=== PATIENT | male | born 1945 | race Caucasian/White ===

== ENCOUNTER 2016-08-27 12:55 | Inpatient (IN) | payer MEDICARE ==
[~2016-08-27] VITALS: Ht 182.9 cm; Wt 108.6 kg
[2016-08-27] VITALS (7 sets, daily range): BP systolic 115–143; BP diastolic 56–98; PULSE 61–81; RESP 16–23; TEMP 97.7–98.6; O2SAT 91–96
[~2016-08-27 12:55] MED LIST: ATEN1TAB73 PO; DILA100C PO; ENOX40P SQ; FLUO-1 PO; LASI20TA PO; LOMO PO; LORA-475 PO; LORT7.5T3 PO; METO5TAB PO; NEUR100C PO; NEXI20CA PO; PHEN15TA8 PO; PROM6.2518 PO; SOMA350T PO; TAB-TAB PO; VARE.5
--- NOTE | 2016-08-27 16:53 | RADRPT ---
EXAM DATE/TIME: 08/27/2016 16:33 [place] COMPARISON: No previous studies available for comparison. INDICATIONS : Cough. MEDICAL HISTORY : Chronic obstructive pulmonary disease. Stroke. SURGICAL HISTORY : None. ENCOUNTER: Initial ACUITY: >1 year PAIN SCORE: 0/10 LOCATION: Bilateral chest FINDINGS: Mild left lung base atelectasis and/or infiltrate is seen. Heart and mediastinum are unremarkable for technique. There are atherosclerotic calcifications of the aorta due to chronic atherosclerotic dise ase. CONCLUSION: Mild left lung base atelectasis and/or infiltrate is seen. Joe Barker MD on August 27, 2016 at 16:50 Board Certified Radiologist. This report was verified electronically.
--- NOTE | 2016-08-27 16:57 | PD ---
HPI Chief Complaint: Lump, Cyst, Hernia Time Seen by Provider: 16:14 Travel History International Travel<30 days: No Contact w/Intl Traveler<30days: No Traveled to known affect area: No History of Present Illness HPI Patient is a 70-year-old male presents emergency department for evaluation of a cyst on his upper back. Patient states that her physician drained at the other day and then he followed up with a plastic surgeon who recommended he come to the emergency department for evaluation for possible infection and need for admission. He states that he was told that they "don't think they got it all and he'll need to have it surgically removed". After discussion with the patient it sounds like is referring to an infected sebaceous cyst. He was placed on Keflex and states his been taking it. He is a diabetic COPD on home oxygen. States his been feeling chills but hasn't taken his temperature. Denies any systemic symptoms denies chest patrons breath abdominal pain nausea vomiting. States that his primary care physician he has not seen in 6 months is fussy over 3 months he has not had blood work in some time. States that he has no known history of kidney problems per [facility] Past Medical History Arthritis: Yes Depression: Yes Cardiovascular Problems: Yes Congestive Heart Failure: Yes COPD: Yes Cerebrovascular Accident: Yes Diabetes: Yes Patient Takes Glucophage: No Gastrointestinal Disorders: Yes GERD: Yes Genitourinary: No Hypertension: Yes Musculoskeletal: Yes Reproductive: No Respiratory: No Seizures: Yes Tetanus Vaccination: > 5 Years Influenza Vaccination: Yes Social History Alcohol Use: Yes Tobacco Use: Yes (E-CIGARETTE) Substance Use: No Allergies-Medications (Allergen,Severity, Reaction): Coded Allergies: Depakote (Verified Allergy, Unknown, 08/27/16) Reported Meds & Prescriptions Reported Meds & Active Scripts Active Reported Tramadol (Tramadol HCl) 50 Mg Tab 50 Mg PO BID PRN Trazodone (Trazodone HCl) 150 Mg Tablet 150 Mg PO BID Lexapro (Escitalopram Oxalate) 20 Mg Tab 20 Mg PO DAILY Zyrtec (Cetirizine HCl) 10 Mg Tablet 10 Mg PO DAILY Celebrex (Celecoxib) 200 Mg Cap 200 Mg PO DAILY Glipizide 10 Mg Tab 10 Mg PO BID Take 30 minutes before a meal Phenergan (Promethazine HCl) 25 Mg Tablet 25 Mg PO Q6H PRN Omeprazole 20 Mg Tab 20 Mg PO DAILY Singulair (Montelukast Sodium) 10 Mg Tab 10 Mg PO HS Lorazepam 1 Mg Tab 1 Mg PO BID Gabapentin 400 Mg Cap 400 Cap PO TID Tenormin (Atenolol) 25 Mg Tab 25 Mg PO BID Tamsulosin (Tamsulosin HCl) 0.4 Mg Cap 0.4 Mg PO HS Invokamet (Canagliflozin-Metformin) 50-1,000 Mg Tab 1 Tab PO BID Take with meals. Avoid ethanol. Keflex (Cephalexin) 500 Mg Capsule 500 Mg PO TID 5 Days Review of Systems Except as stated in HPI: all other systems reviewed are Neg Physical Exam Narrative GENERAL: Well-developed well-nourished no apparent distress, quite pleasant. SKIN: There is a small lesion on his upper back just left of midline approximately T2 level, minimal serosanguineous discharge, no surrounding cellulitis, HEAD: Atraumatic. Normocephalic. EYES: Pupils equal and round. No scleral icterus. No injection or drainage. ENT: No nasal bleeding or discharge. Mucous membranes pink and moist. NECK: Trachea midline. No JVD. CARDIOVASCULAR: Regular rate and rhythm. No murmur appreciated. RESPIRATORY: No accessory muscle use. Clear to auscultation. Breath sounds equal bilaterally. GASTROINTESTINAL: Abdomen soft, non-tender, nondistended. Hepatic and splenic margins not palpable. MUSCULOSKELETAL: No obvious deformities. No clubbing. No cyanosis. No edema. NEUROLOGICAL: Awake and alert. No obvious cranial nerve deficits. Motor grossly within normal limits. Normal speech. PSYCHIATRIC: Appropriate mood and affect; insight and judgment normal. Data Data Last Documented VS Vital Signs Date Time Temp Pulse Resp B/P Pulse Ox O2 Delivery O2 Flow Rate FiO2 08/27/16 19:18 64 22 115/56 95 Nasal Cannula 2 08/27/16 16:16 98.6 Orders Electrocardiogram (08/27/16 16:28) Complete Blood Count With Diff (08/27/16 16:28) Comprehensive Metabolic Panel (08/27/16 16:28) Lactic Acid Sepsis Protocol (08/27/16 16:28) Magnesium (Mg) (08/27/16 16:28) Phosphorus (Po4) (08/27/16 16:28) Lipase (08/27/16 16:28) Urinalysis - C+S If Indicated (08/27/16 16:28) Chest, Single Ap (08/27/16 16:28) Ecg Monitoring (08/27/16 16:28) Iv Access Insert/Monitor (08/27/16 16:28) Oximetry (08/27/16 16:28) Oxygen Administration (08/27/16 16:28) Urine Culture (08/27/16 18:08) Admit Order (Ed Use Only) (08/27/16 ) Labs Laboratory Tests Test 08/27/16 08/27/16 16:30 18:08 White Blood Count 10.8 TH/MM3 Red Blood Count 4.04 MIL/MM3 Hemoglobin 12.6 GM/DL Hematocrit 37.4 % Mean Corpuscular Volume 92.6 FL Mean Corpuscular Hemoglobin 31.1 PG Mean Corpuscular Hemoglobin 33.6 % Concent Red Cell Distribution Width 14.3 % Platelet Count 316 TH/MM3 Mean Platelet Volume 7.5 FL Neutrophils (%) (Auto) 71.1 % Lymphocytes (%) (Auto) 18.2 % Monocytes (%) (Auto) 6.7 % Eosinophils (%) (Auto) 3.4 % Basophils (%) (Auto) 0.6 % Neutrophils # (Auto) 7.6 TH/MM3 Lymphocytes # (Auto) 2.0 TH/MM3 Monocytes # (Auto) 0.7 TH/MM3 Eosinophils # (Auto) 0.4 TH/MM3 Basophils # (Auto) 0.1 TH/MM3 CBC Comment DIFF FINAL Differential Comment Sodium Level 133 MEQ/L Potassium Level 5.5 MEQ/L Chloride Level 99 MEQ/L Carbon Dioxide Level 25.8 MEQ/L Anion Gap 8 MEQ/L Blood Urea Nitrogen 32 MG/DL Creatinine 2.32 MG/DL Estimat Glomerular Filtration 28 ML/MIN Rate Random Glucose 170 MG/DL Lactic Acid Level 1.5 mmol/L Calcium Level 9.1 MG/DL Phosphorus Level 4.6 MG/DL Magnesium Level 2.5 MG/DL Total Bilirubin 0.2 MG/DL Aspartate Amino Transf 19 U/L (AST/SGOT) Alanine Aminotransferase 42 U/L (ALT/SGPT) Alkaline Phosphatase 93 U/L Total Protein 8.3 GM/DL Albumin 3.5 GM/DL Lipase 147 U/L Urine Color YELLOW Urine Turbidity CLEAR Urine pH 5.5 Urine Specific [place] 1.023 Urine Protein TRACE mg/dL Urine Glucose (UA) 1000 mg/dL Urine Ketones NEG mg/dL Urine Occult Blood NEG Urine Nitrite NEG Urine Bilirubin NEG Urine Urobilinogen LESS THAN 2.0 MG/DL Urine Leukocyte Esterase NEG Urine RBC 1 /hpf Urine WBC 1 /hpf Urine Squamous Epithelial <1 /hpf Cells Urine Bacteria RARE /hpf Urine Hyaline Casts 38 /lpf Microscopic Urinalysis Comment CATH-CULTURE IND MDM Medical Decision Making Medical Screen Exam Complete: Yes Emergency Medical Condition: Yes Interpretation(s) EKG shows normal sinus rhythm normal axis normal R-wave progression. No concerning ST segment changes. Intervals within normal limits. This normal EKG. Differential Diagnosis Infected sebaceous cyst, sepsis, dehydration, acute kidney injury, electro- light abnormality. Narrative Course Patient was roomed in the emergency department, he appears well in all distress , does not appear toxic and certainly the wound does not appear infected at this time. His history is consistent with an infected sebaceous cyst. I think that he could pursue outpatient follow-up with general surgery if he was not septic, basic labs were ordered and are reassuring except for the fact that the patient has an acute kidney injury, his last creatinine here was any years ago and was within normal limits today is 2.3. He does have a minimal elevation of potassium at 5.5 but has no EKG abnormalities. The patient was discussed with Dr. Orlando who agrees for admission. Patient is agreeable this time. Diagnosis Primary Impression: Acute kidney injury Additional Impression: Hyperkalemia Admitting Information Admitting Physician Requests: Admit Condition: Stable Waqas Boyd MD Aug 27, 2016 16:57
[2016-08-27] MEDS ORDERED: GABA400C5 PO (16:58)
[2016-08-27] MEDS ORDERED: TRAM50TA PO (16:58)
[2016-08-27] MEDS ORDERED: ATEN1TAB73 PO (16:58)
[2016-08-27] MEDS ORDERED: OMEP20TA PO (16:58)
[2016-08-27] MEDS ORDERED: CETI-1 PO (16:58)
[2016-08-27] MEDS ORDERED: CANA1TAB2 PO (16:58)
[2016-08-27] MEDS ORDERED: LORA1TAB12 PO (16:58)
[2016-08-27] MEDS ORDERED: LEXA20TA PO (16:58)
[2016-08-27] MEDS ORDERED: TRAZ1TAB45 PO (16:58)
[2016-08-27] MEDS ORDERED: TAMS0.4C4 PO (16:58)
[2016-08-27] MEDS ORDERED: MONT10TA2 PO (16:58)
[2016-08-27] MEDS ORDERED: PROM25TA10 PO (16:58)
[2016-08-27] MEDS ORDERED: GLIP10TA6 PO (16:58)
[2016-08-27] MEDS ORDERED: CELE200C PO (16:58)
[2016-08-27] MEDS ORDERED: CEPH-460 PO (16:58)
[2016-08-27 17:07] LABS: AUTOMATED NEUTROPHIL # 7.6 TH/MM3 (1.8-7.7); BASOPHIL # 0.1 TH/MM3 (0-0.2); BASOPHIL % 0.6 % (0.0-2.0); EOSINOPHIL # 0.4 TH/MM3 (0-0.4); EOSINOPHIL % 3.4 % (0.0-4.0); HEMATOCRIT 37.4 % (39.0-51.0); HEMO FLAGS DIFF FINAL; LYMPH % 18.2 % (9.0-44.0); MEAN CELL VOLUME 92.6 FL (80.0-100.0); MEAN CORPUSCULAR HEMOGLOBIN 31.1 PG (27.0-34.0); MEAN CORPUSCULAR HGB CONC 33.6 % (32.0-36.0); MONO % 6.7 % (0.0-8.0); NEUT % 71.1 % (16.0-70.0); PLATELET COUNT 316 TH/MM3 (150-450); RED BLOOD COUNT 4.04 MIL/MM3 (4.50-5.90); RED CELL DISTRIBUTION WIDTH 14.3 % (11.6-17.2); WHITE BLOOD COUNT 10.8 TH/MM3 (4.0-11.0)
[2016-08-27 17:33] LABS: ALT (GPT) 42 U/L (12-78); ANION GAP 8 MEQ/L (5-15); AST (GOT) 19 U/L (15-37); BICARBONATE 25.8 MEQ/L (21.0-32.0); BLOOD UREA NITROGEN 32 MG/DL (7-18); CHLORIDE 99 MEQ/L (98-107); GLOMERULAR FILTRATION RATE 28 ML/MIN (>89); MAGNESIUM 2.5 MG/DL (1.5-2.5); POTASSIUM 5.5 MEQ/L (3.5-5.1); SODIUM (NA) 133 MEQ/L (136-145)
[2016-08-27 17:34] LABS: ALKALINE PHOSPHATASE 93 U/L (45-117); TOTAL BILIRUBIN ADULT 0.2 MG/DL (0.2-1.0)
[2016-08-27 18:39] LABS: BACTERIA, URINE RARE /hpf; BLOOD, URINE NEG (NEG); COMMENT (UR) CATH-CULTURE IND; CULTURE IF INDICATED CATH CULTURE IND; GLUCOSE,URINE 1000 mg/dL (NEG); HYALINE CAST, URINE 38 /lpf (RARE); KETONE, URINE NEG (NEG); NITRITE,URINE NEG (NEG); PH, URINE 5.5 (5.0-8.5); SQUAMOUS EPITHELIAL CELL URINE <1 /hpf (0-5); URINE COLOR YELLOW (YELLW/STRAW)
[2016-08-27] MEDS ORDERED: SODIUM CHLORIDE 0.9% FLUSH 10 ML FLUSH IV FLUSH PRN (19:45)
[2016-08-27] MEDS ORDERED: NALOXONE HCL 0.4 MG/ML AMP IV PRN (19:45)
[2016-08-27] MEDS ORDERED: GLUCAGON 1 MG/ML VIAL OTHER PRN (20:00)
[2016-08-27] MEDS ORDERED: RESP: ALBUTEROL 2.5 MG/IPRATROPIUM 0.5 MG NEB (PRN) NEB (20:00)
[2016-08-27] MEDS ORDERED: SODIUM POLYSTYRENE SULFONATE SUSP 15 GM/60 ML CUP PO ONE (20:00)
[2016-08-27] MEDS ORDERED: DEXTROSE 50% IN WATER 50 ML VIAL(D50) IV PRN (20:00)
[2016-08-27] MEDS: RESP: ALBUTEROL 2.5 MG/IPRATROPIUM 0.5 MG NEB (SCH) NEB (21:47)
--- NOTE | 2016-08-27 22:33 | EKG ---
Date Performed: 08/27/2016 Time Performed: 16:41:35 PTAGE: 70 years EKG: Sinus rhythm NORMAL ECG PREVIOUS TRACING : 01/01/2010 21.43 Compared to previous tracing, nonspecific ST/T changes are no longer present. DOCTOR: Pantera Gonzalez Interpretating Date/Time 08/27/2016 22:31:56
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
[2016-08-28] VITALS (8 sets, daily range): BP systolic 120–158; BP diastolic 64–78; PULSE 62–87; RESP 18–20; TEMP 97.6–98.5; O2SAT 92–98
[2016-08-28] MEDS: INSULIN ASPART SUPPLEMENTAL SCALE SQ SCH ×5 (00:02→21:00)
[2016-08-28 00:43] LABS: BICARBONATE 22.4 MEQ/L (21.0-32.0); POTASSIUM 4.9 MEQ/L (3.5-5.1)
[2016-08-28] MEDS ORDERED: traMADol HCL 50 MG TAB PO PRN (01:00)
[2016-08-28] MEDS: SODIUM CHLORIDE 0.9% FLUSH 10 ML FLUSH IV FLUSH SCH ×3 (02:51→22:17)
[2016-08-28] MEDS: HEPARIN SODIUM - SQ 10,000 UNITS/ML VIAL SQ SCH ×3 (03:06→17:00)
[2016-08-28] MEDS: CLINDAMYCIN INJ 600 MG in SODIUM CHLORIDE 0.9% INJ 100 ML IV SCH ×4 (03:14→22:24)
[2016-08-28] MEDS: RESP: ALBUTEROL 2.5 MG/IPRATROPIUM 0.5 MG NEB (SCH) NEB ×4 (04:33→20:35)
[2016-08-28] MEDS: traZODone HCL 50 MG TAB PO SCH ×2 (09:08→22:17)
[2016-08-28] MEDS: GABAPENTIN 400 MG CAP PO SCH ×3 (09:08→17:56)
[2016-08-28] MEDS: ATENOLOL 25 MG TAB PO SCH ×2 (09:08→22:19)
[2016-08-28] MEDS: PANTOPRAZOLE SOD 20 MG DELAYED RELEASE TAB PO SCH (09:08)
[2016-08-28] MEDS: CETIRIZINE HCL 10 MG TAB PO SCH (09:09)
[2016-08-28] MEDS: LORazepam 1 MG TAB PO SCH ×2 (09:09→22:19)
[2016-08-28] MEDS: ESCITALOPRAM OXALATE 20 MG TAB PO SCH (09:10)
[2016-08-28 10:08] LABS: AUTOMATED NEUTROPHIL # 7.1 TH/MM3 (1.8-7.7); BASOPHIL # 0.1 TH/MM3 (0-0.2); BASOPHIL % 0.5 % (0.0-2.0); EOSINOPHIL # 0.3 TH/MM3 (0-0.4); EOSINOPHIL % 3.6 % (0.0-4.0); HEMATOCRIT 37.8 % (39.0-51.0); HEMO FLAGS DIFF FINAL; LYMPH % 15.5 % (9.0-44.0); LYMPHOCYTE # 1.5 TH/MM3 (1.0-4.8); MEAN CELL VOLUME 92.3 FL (80.0-100.0); MEAN CORPUSCULAR HEMOGLOBIN 30.5 PG (27.0-34.0); MEAN CORPUSCULAR HGB CONC 33.1 % (32.0-36.0); MONO % 6.3 % (0.0-8.0); NEUT % 74.1 % (16.0-70.0); PLATELET COUNT 298 TH/MM3 (150-450); RED BLOOD COUNT 4.09 MIL/MM3 (4.50-5.90); RED CELL DISTRIBUTION WIDTH 14.2 % (11.6-17.2); WHITE BLOOD COUNT 9.7 TH/MM3 (4.0-11.0)
[2016-08-28 10:32] LABS: BICARBONATE 24.7 MEQ/L (21.0-32.0); POTASSIUM 4.9 MEQ/L (3.5-5.1)
--- NOTE | 2016-08-28 10:35 | PD.CONS ---
cc: Humble Pitt MD HPI Service General Surgery Consult Requested By Dr. Graves Reason for Consult Evaluation of LEFT posterior shoulder infected sebaceous cyst/abscess Primary Care Physician Unknown History of Present Illness This is a 70-year-old male with a past medical history arthritis, depression, congestive heart failure, COPD, CVA, diabetes mellitus, GERD, hypertension, and seizures. About 10 weeks ago he was seen at town clerk in [place] for an excision of a left thigh lesion. At that time he the town clerk noticed a left posterior upper shoulder lesion and at that time attempted to drain it. The week following that he experienced fever and generalized malaise. He went back to see the town clerk for follow-up visit on August 26 and states that she drained approximately 3-1/2 cups of fluid from the left posterior shoulder. She referred him to the emergency department for evaluation of left posterior shoulder infected sebaceous cyst/abscess. A General Surgery consultation has been requested for possible incision and drainage of left posterior shoulder infected sebaceous cyst. Review of Systems Constitutional: COMPLAINS OF: Fatigue, Chills, DENIES: Change in appetite Endocrine: DENIES: Polydipsia, Polyuria, Polyphagia Eyes: DENIES: Blurred vision Ears, nose, mouth, throat: DENIES: Hearing loss Respiratory: DENIES: Apneas Cardiovascular: DENIES: Chest pain Gastrointestinal: DENIES: Abdominal pain, Nausea, Vomiting Genitourinary: DENIES: Dysuria Musculoskeletal: DENIES: Joint pain Integumentary: COMPLAINS OF: Abnormal pigmentation (left posterior shoulder: Redness and swelling status post incision of infected sebaceous cyst), DENIES: Rash Hematologic/lymphatic: DENIES: Bruising Immunologic/allergic: DENIES: Eczema Neurologic: DENIES: Localized weakness, Paresthesias Psychiatric: DENIES: Mood changes, Depression, Hallucinations Past Family Social History Past Medical History Arthritis Depression Congestive heart failure COPD CVA Diabetes mellitus GERD Hypertension Seizures Bowel perforation as a teenager Past Surgical History Colostomy and hemicolectomy Partial gastrectomy Left leg lesion removal Reported Medications Flomax Gabapentin Lexapro Trazodone Lorazepam Atenolol Singulair Celebrex Tramadol Phenergan Omeprazole Zyrtec Glipizide Invokamet Allergies: Coded Allergies: Depakote (Verified Allergy, Unknown, 08/27/16) Active Ordered Medications Current Medications Medications (Trade) Dose Ordered Sig/Laureano Route Start Time Stop Time Status Last Admin (NS 1000 ml Inj) 1,000 ml @ 100 mls/hr Q10H IV 08/27/16 20:00 Hold (NS Flush) 2 ml UNSCH PRN IV FLUSH 08/27/16 19:45 (NS Flush) 2 ml BID IV FLUSH 08/27/16 21:00 08/28/16 09:10 (Narcan Inj) 0.4 mg UNSCH PRN IV 08/27/16 19:45 (D50w (Vial) Inj) 50 ml UNSCH PRN IV 08/27/16 20:00 Glucagon 1 mg 1 mg UNSCH PRN OTHER 08/27/16 20:00 (Cleocin Inj/NS Inj) 104 ml @ 208 mls/hr Q6H IV 08/28/16 02:00 08/28/16 03:14 (Heparin Inj) 5,000 units Q8H SQ 08/28/16 01:00 08/28/16 09:07 (Pneumovax-23 Inj) 25 mcg ONCE ONCE IM 08/29/16 10:00 08/29/16 10:01 (Tenormin) 25 mg BID PO 08/28/16 09:00 08/28/16 09:08 (ZyrTEC) 10 mg DAILY PO 08/28/16 09:00 08/28/16 09:09 (Lexapro) 20 mg DAILY PO 08/28/16 09:00 08/28/16 09:10 (Neurontin) 400 mg TID PO 08/28/16 09:00 08/28/16 09:08 (Ativan) 1 mg BID PO 08/28/16 09:00 08/28/16 09:09 (Singulair) 10 mg HS PO 08/28/16 21:00 (Flomax) 0.4 mg HS PO 08/28/16 21:00 (Ultram) 50 mg BID PRN PO 08/28/16 01:00 (Protonix) 20 mg DAILY PO 08/28/16 09:00 08/28/16 09:08 (Desyrel) 150 mg BID PO 08/28/16 09:00 08/28/16 09:08 Family History Noncontributory Social History Denies current tobacco use Denies current EtOH use Denies illicit drug use Physical Exam Vital Signs Vital Signs Date Time Temp Pulse Resp B/P Pulse Ox O2 Delivery O2 Flow Rate FiO2 08/28/16 09:20 94 Nasal Cannula 2.00 08/28/16 08:00 98.5 74 20 158/75 93 08/28/16 04:00 98.4 62 18 122/70 98 08/28/16 00:41 97.6 66 18 128/72 96 08/27/16 23:30 81 08/27/16 21:47 93 High Flow Nasal Cannula 2.00 08/27/16 21:06 97.7 61 16 139/98 95 08/27/16 19:18 64 22 115/56 95 Nasal Cannula 2 08/27/16 18:39 68 16 143/58 96 Room Air 08/27/16 16:16 98.6 68 23 121/70 91 Room Air 08/27/16 12:58 76 20 134/88 92 Room Air Physical Exam GENERAL: Pleasant 70 year old male resting in bed in no acute distress. SKIN: LEFT posterior shoulder: large area of redness at site of infected sebaceous cyst; incision noted with minimal drainage; painful to palpation. HEAD: Atraumatic. Normocephalic. EYES: Pupils equal and round. No scleral icterus. No injection or drainage. ENT: No nasal bleeding or discharge. Mucous membranes pink and moist. NECK: Trachea midline. CARDIOVASCULAR: Regular rate and rhythm. RESPIRATORY: No accessory muscle use. Clear to auscultation. Breath sounds equal bilaterally. GASTROINTESTINAL: Abdomen soft, non-tender, nondistended. MUSCULOSKELETAL: Extremities without clubbing, cyanosis, or edema. No obvious deformities. NEUROLOGICAL: Awake and alert. No obvious cranial nerve deficits. Motor grossly within normal limits. Five out of 5 muscle strength in the arms and legs. Normal speech. PSYCHIATRIC: Appropriate mood and affect; insight and judgment normal. Laboratory Laboratory Tests Test 08/27/16 08/27/16 08/27/16 08/28/16 16:30 18:08 23:59 08:47 White Blood Count 10.8 9.7 Red Blood Count 4.04 4.09 Hemoglobin 12.6 12.5 Hematocrit 37.4 37.8 Mean Corpuscular Volume 92.6 92.3 Mean Corpuscular Hemoglobin 31.1 30.5 Mean Corpuscular Hemoglobin 33.6 33.1 Concent Red Cell Distribution Width 14.3 14.2 Platelet Count 316 298 Mean Platelet Volume 7.5 7.2 Neutrophils (%) (Auto) 71.1 74.1 Lymphocytes (%) (Auto) 18.2 15.5 Monocytes (%) (Auto) 6.7 6.3 Eosinophils (%) (Auto) 3.4 3.6 Basophils (%) (Auto) 0.6 0.5 Neutrophils # (Auto) 7.6 7.1 Lymphocytes # (Auto) 2.0 1.5 Monocytes # (Auto) 0.7 0.6 Eosinophils # (Auto) 0.4 0.3 Basophils # (Auto) 0.1 0.1 CBC Comment DIFF FINAL DIFF FINAL Differential Comment Sodium Level 133 130 Potassium Level 5.5 4.9 Chloride Level 99 101 Carbon Dioxide Level 25.8 22.4 Anion Gap 8 7 Blood Urea Nitrogen 32 31 Creatinine 2.32 1.84 Estimat Glomerular Filtration 28 37 Rate Random Glucose 170 139 Lactic Acid Level 1.5 Calcium Level 9.1 8.5 Phosphorus Level 4.6 Magnesium Level 2.5 Total Bilirubin 0.2 Aspartate Amino Transf 19 (AST/SGOT) Alanine Aminotransferase 42 (ALT/SGPT) Alkaline Phosphatase 93 Total Protein 8.3 Albumin 3.5 Lipase 147 Urine Color YELLOW Urine Turbidity CLEAR Urine pH 5.5 Urine Specific [place] 1.023 Urine Protein TRACE Urine Glucose (UA) 1000 Urine Ketones NEG Urine Occult Blood NEG Urine Nitrite NEG Urine Bilirubin NEG Urine Urobilinogen LESS THAN 2.0 Urine Leukocyte Esterase NEG Urine RBC 1 Urine WBC 1 Urine Squamous Epithelial <1 Cells Urine Bacteria RARE Urine Hyaline Casts 38 Microscopic Urinalysis Comment CATH-CULTURE IND Date/Time Procedure Status Source Growth 08/27/16 18:08 Urine Culture Received Urine Catheterized Urine Pending Result Diagram: 08/28/16 0847 08/27/16 5745 Assessment and Plan Assessment and Plan 70 year old male with multiple medical problems with a LEFT shoulder infected sebaceous cyst; s/p office I&D -Plan for OR today for I&D and possible Would Vac placement today -NPO -Obtain consents -Discussed with EMANUEL Bragg the plan -Patient agrees with plan -Thank you for this consult; we will continue to follow Discussed Condition With Bridgette Rodas Aug 28, 2016 10:35
--- NOTE | 2016-08-28 11:55 | HHI.PR ---
Subjective Remarks Pt tells me that he feels tired and wants to go home and sleep. Currently denies any pain. Scheduled for OR today but doesn't know when. No nausea or vomiting. Objective Vitals Vital Signs Date Time Temp Pulse Resp B/P Pulse Ox O2 Delivery O2 Flow Rate FiO2 08/28/16 09:20 94 Nasal Cannula 2.00 08/28/16 08:00 98.5 74 20 158/75 93 08/28/16 04:00 98.4 62 18 122/70 98 08/28/16 00:41 97.6 66 18 128/72 96 08/27/16 23:30 81 08/27/16 21:47 93 High Flow Nasal Cannula 2.00 08/27/16 21:06 97.7 61 16 139/98 95 08/27/16 19:18 64 22 115/56 95 Nasal Cannula 2 08/27/16 18:39 68 16 143/58 96 Room Air 08/27/16 16:16 98.6 68 23 121/70 91 Room Air 08/27/16 12:58 76 20 134/88 92 Room Air I/O 08/27/16 08/27/16 08/27/16 08/28/16 08/28/16 08/28/16 07:00 15:00 23:00 07:00 15:00 23:00 Intake Total 720 ml Output Total 800 ml Balance -80 ml Intake Oral 720 ml Output Urine Total 800 ml # Bowel Movements 1 Result Diagram: 08/28/16 0847 08/28/16 0847 Imaging Last Impressions Chest X-Ray 08/27/16 1628 Signed Impressions: Service Date/Time: Saturday, August 27, 2016 16:33 - CONCLUSION: Mild left lung base atelectasis and/or infiltrate is seen. Joe Barker MD Objective Remarks GENERAL: This is an older male patient, in no apparent distress. SKIN: Left leg medial aspect with healed incision above knee. Left posterior shoulder surgical site - edematous, erythematous with some bloody discharge noted. Tender to palpation HEAD: Atraumatic. Normocephalic. EYES: EOMI ENT: Nose without bleeding NECK: Trachea midline. CARDIOVASCULAR: Regular rate and rhythm without murmurs RESPIRATORY: Clear to auscultation. Breath sounds equal bilaterally. No wheezes. GASTROINTESTINAL: Abdomen soft, non-tender, nondistended. No guarding. MUSCULOSKELETAL: Extremities without edema. No calf tenderness. NEUROLOGICAL: Awake and alert. Motor and sensory grossly within normal limits. Normal speech. A/P Problem List: (1) Hyperkalemia ICD Code: E87.5 Status: Acute (2) Acute kidney injury ICD Code: N17.9 Status: Acute Assessment and Plan Mr. Ballesteros came presented to the ED on 08/27/16 for evaluation of an infected left shoulder cyst. Here, he was found to have hyperkalemia and ARF and is admitted for management. Soft tissue infection post-procedure - Clindamycin 600 mg IV q6h - General surgery evaluated the patient and will be taking pt to OR later today for I&D and possible wound vac placement. Hyperkalemia - initial potassium is 5.5 - s/p Kayexalate, K level back to normal. - recheck bmp in am Acute kidney injury - likely secondary to dehydration from nausea and vomiting with poor oral intake - Renal function tests: BUN - 32, Creatinine - 2.32, eGFR - 28 on admission. Cr down to 1.35 today - s/p IVFs. Continue gentle hydration - repeat BMP in a.m Diabetes mellitus - Accu-Cheks before meals and at bedtime with low-dose NovoLog sliding scale coverage - Hypoglycemia protocol - Monitor trends and blood glucose and adjust treatments as indicated DVT prophylaxis Heparin 5000 units subq q24h . Discharge Planning OR later today Ivanna Zamudio MD Aug 28, 2016 11:55
[2016-08-28] MEDS ORDERED: TAMSULOSIN HCL 0.4 MG CAP PO SCH (21:00)
[2016-08-28] MEDS ORDERED: MONTELUKAST SODIUM 10 MG TAB PO SCH (21:00)
[2016-08-28] MEDS: SODIUM CHLOR 0.9% 1000 ML INJ 1,000 ML IV SCH (22:27)
[2016-08-29] VITALS (7 sets, daily range): BP systolic 99–158; BP diastolic 58–71; PULSE 63–75; RESP 18–22; TEMP 97.4–98.6; O2SAT 93–100
[2016-08-29] MEDS: HEPARIN SODIUM - SQ 10,000 UNITS/ML VIAL SQ SCH ×2 (01:47→10:02)
[2016-08-29] MEDS: CLINDAMYCIN INJ 600 MG in SODIUM CHLORIDE 0.9% INJ 100 ML IV SCH ×3 (02:08→14:24)
[2016-08-29] MEDS: RESP: ALBUTEROL 2.5 MG/IPRATROPIUM 0.5 MG NEB (SCH) NEB ×3 (03:55→15:59)
[2016-08-29] MEDS: INSULIN ASPART SUPPLEMENTAL SCALE SQ SCH ×2 (06:17→11:00)
[2016-08-29] MEDS ORDERED: LIDOCAINE 1%/EPINEPHrine 1:100,000 SOLN 20 ML VIAL INFIL ONE (08:00)
[2016-08-29] MEDS: SODIUM CHLORIDE 0.9% FLUSH 10 ML FLUSH IV FLUSH SCH (09:00)
[2016-08-29] MEDS: SODIUM CHLOR 0.9% 1000 ML INJ 1,000 ML IV SCH (09:57)
[2016-08-29] MEDS: GABAPENTIN 400 MG CAP PO SCH ×2 (10:00→14:24)
[2016-08-29] MEDS: traZODone HCL 50 MG TAB PO SCH (10:00)
[2016-08-29] MEDS ORDERED: PNEUMOCOCCAL POLYVALENT INJ 25 MCG/0.5 ML SYR IM ONE (10:00)
[2016-08-29] MEDS: LORazepam 1 MG TAB PO SCH (10:00)
[2016-08-29] MEDS: CETIRIZINE HCL 10 MG TAB PO SCH (10:01)
[2016-08-29] MEDS: PANTOPRAZOLE SOD 20 MG DELAYED RELEASE TAB PO SCH (10:01)
[2016-08-29] MEDS: ATENOLOL 25 MG TAB PO SCH (10:01)
[2016-08-29] MEDS: ESCITALOPRAM OXALATE 20 MG TAB PO SCH (10:01)
--- NOTE | 2016-08-29 14:25 | HHI.PR ---
Subjective Remarks Pt is upset that his OR time has been pushed to 3pm. He wants to eat and feels that we should notify surgeon that he has been waiting for a long time. I explained to him about how the OR works and also explained to him that if his OR time has been pushed, it is most likely because of an emergency. I attempted to calm patient and explain to him the importance of waiting however pt decided that he wants to leave AMA. Objective Vitals Vital Signs Date Time Temp Pulse Resp B/P Pulse Ox O2 Delivery O2 Flow Rate FiO2 08/29/16 12:00 98.0 63 18 131/71 93 08/29/16 08:17 93 Nasal Cannula 2.00 08/29/16 08:00 72 08/29/16 08:00 98.6 67 18 156/69 93 08/29/16 04:00 97.8 69 22 158/69 95 08/29/16 00:00 97.6 75 20 124/58 94 08/28/16 20:37 94 Nasal Cannula 2.00 08/28/16 20:00 97.6 68 20 155/78 95 08/28/16 20:00 87 08/28/16 16:00 97.9 67 18 121/71 92 I/O 08/28/16 08/28/16 08/28/16 08/29/16 08/29/16 08/29/16 06:59 14:59 22:59 06:59 14:59 22:59 Intake Total 720 ml 0 ml 0 ml 612 ml Output Total 800 ml 400 ml 500 ml Balance -80 ml -400 ml 0 ml 612 ml -500 ml Intake Oral 720 ml 0 ml 0 ml 0 ml IV Total 612 ml Output Urine Total 800 ml 400 ml 500 ml # Voids 1 # Bowel Movements 1 2 1 Result Diagram: 08/28/16 0847 08/28/16 0847 Imaging Last Impressions Chest X-Ray 08/27/16 1628 Signed Impressions: Service Date/Time: Saturday, August 27, 2016 16:33 - CONCLUSION: Mild left lung base atelectasis and/or infiltrate is seen. Joe Barker MD Objective Remarks GENERAL: This is an older male patient, in no apparent distress. SKIN: Left posterior shoulder surgical site - edematous, indurated, erythematous but no discharge, tender to palpation. HEAD: Atraumatic. Normocephalic. EYES: EOMI ENT: Nose without bleeding NECK: Trachea midline. CARDIOVASCULAR: Regular rate and rhythm without murmurs RESPIRATORY: Clear to auscultation. Breath sounds equal bilaterally. No wheezes. GASTROINTESTINAL: Abdomen soft, non-tender, nondistended. No guarding. MUSCULOSKELETAL: Extremities without edema. No calf tenderness. NEUROLOGICAL: Awake and alert. Motor and sensory grossly within normal limits. Normal speech. A/P Problem List: (1) Hyperkalemia ICD Code: E87.5 Status: Acute (2) Acute kidney injury ICD Code: N17.9 Status: Acute Assessment and Plan Mr. Ballesteros came presented to the ED on 08/27/16 for evaluation of an infected left shoulder cyst. Here, he was found to have hyperkalemia and ARF and is admitted for management. Soft tissue infection post-procedure - Clindamycin 600 mg IV q6h - General surgery evaluated the patient and will be taking pt to OR later today for I&D and possible wound vac placement. However pt is upset that his OR time has been pushed and wants to leave AMA. I did my best to explain to him the importance of staying and getting treatment, he refuses to stay. Hyperkalemia - initial potassium is 5.5 - s/p Kayexalate, K level back to normal. Acute kidney injury - likely secondary to dehydration from nausea and vomiting with poor oral intake - Renal function tests: BUN - 32, Creatinine - 2.32, eGFR - 28 on admission. Cr down to 1.35, repeat Cr today if pt remains in hospital - s/p IVFs. Continue gentle hydration - repeat BMP in a.m if still admitted. Diabetes mellitus - Accu-Cheks before meals and at bedtime with low-dose NovoLog sliding scale coverage - Hypoglycemia protocol - Monitor trends and blood glucose and adjust treatments as indicated DVT prophylaxis Heparin 5000 units subq q24h . Discharge Planning OR later today however pt threatening to leave AMA. RN to notify me if he does Ivanna Zamudio MD Aug 29, 2016 14:25
[2016-08-29] MEDS ORDERED: CLIN1CAP6 PO (16:53)
[2016-08-29] MEDS ORDERED: NORC5TAB PO (16:53)
[2016-08-29] MEDS ORDERED: PERI8.6T PO (16:53)
--- NOTE | 2016-08-29 22:39 | MP ---
cc: REYNA PITT MD DATE OF SURGERY: 08/29/2016. PREOPERATIVE DIAGNOSIS: 1. Left posterior shoulder abscess cyst. 2. Right axillary cyst abscess. POSTOPERATIVE DIAGNOSIS: 1. Left posterior shoulder abscess cyst. 2. Right axillary cyst abscess. OPERATIVE PROCEDURE PERFORMED: Bedside incision and drainage of left cyst abscess with packing and right axillary abscess. SURGEON: Dr. Reyna Pitt. PRINCIPAL PRODUCT MANAGER: None. ANESTHESIA: Local anesthetic. Lidocaine with epinephrine 1% / 5 mL. DRAINS: None. COMPLICATIONS: None. WOUND CLASSIFICATION: Dirty. SPECIMENS: Purulent drainage sent for culture. FINDINGS: Purulent drainage with thick sebaceous material left posterior shoulder. Thin purulent minimal fluid, right axilla. INDICATIONS FOR THE PROCEDURE: The patient is a 70-year-old male with multiple medical issues who presented with a left posterior shoulder cyst and right axillary abscess. The patient had and acute on chronic episode where he had a chronic sebaceous cyst that got acutely infected and it was drained by a cloth feeder but the purulence continued and did not improve and therefore the patient came to the emergency department for further evaluation. Surgery was consulted for surgical evaluation. Decision for incision and drainage at bedside. DESCRIPTION OF THE PROCEDURE IN DETAIL: The patient was prepped and draped in the usual sterile fashion. After injection of local anesthetic and time-out stating correct patient, procedure and surgical site, attention directed to the left posterior shoulder. A stab lotus incision was made with an 11-blade in a transverse fashion 2.5 cm to the left posterior shoulder. Minimal purulence noted. Thick sebaceous material also noted. Saline flush was used to irrigate the wound. A hemostat was used to break up loculations and removed some other thick debris. Next culture swab taken. Iodoform packing placed in the wound bed. Next sterile dressing were placed. Following this, the right axillary abscess was prepped out in a sterile fashion. A stab lotus incision was made over the purulent flocculent area. A scant amount of purulent drainage was obtained. Iodoform was placed and packed after flushing with saline. The patient tolerated the procedure well. Sterile dressings were then placed on top. No intraoperative complications. Counts were correct. The patient remained stable in bed. MD KENZIE Pierre/DARRION /3:24 PM /10:33 PM
== END 2016-08-29 16:40 | disposition home or self-care (01) | DRG 683 ==
LOC: NEPE 12:55 → NEDH 19:39 → N04B 20:43
PROVIDERS: ADMIT Hospitalist; ATTEND Hospitalist
PROC: 0H9CXZZ Drainage of Left Upper Arm Skin, External Approach (ICD-10-PCS; principal; 2016-08-29)
PROC: 0H9BXZZ Drainage of Right Upper Arm Skin, External Approach (ICD-10-PCS; 2016-08-29)
DX: N17.9 Acute kidney failure, unspecified (principal); L02.411 Cutaneous abscess of right axilla; Z99.81 Dependence on supplemental oxygen; I11.0 Hypertensive heart disease with heart failure; I50.9 Heart failure, unspecified; E87.5 Hyperkalemia; E11.9 Type 2 diabetes mellitus without complications; F32.9 Major depressive disorder, single episode, unspecified; L72.3 Sebaceous cyst; J44.9 Chronic obstructive pulmonary disease, unspecified; Z23 Encounter for immunization; G40.909 Epilepsy, unspecified, not intractable, without status epilepticus; Z86.73 Personal history of transient ischemic attack (TIA), and cerebral infarction without residual deficits; M19.90 Unspecified osteoarthritis, unspecified site; K21.9 Gastro-esophageal reflux disease without esophagitis; E86.0 Dehydration; R11.2 Nausea with vomiting, unspecified; Z90.3 Acquired absence of stomach [part of]
CPT/HCPCS: 71010; 80048; 80053; 81001; 82948; 83605; 83690; 83735; 84100; 85025; 87070; 87086; 87205; 90732; 93005; 94640; 94664; J1644; J1815; J7030

== ENCOUNTER → 2016-10-14 | Day surgery (SDC) | payer MEDICARE ==
[~2016-10-14] MED LIST changes: +BUPIVACAINE/EPINEPHRINE 0.25% PF 30 ML VIAL ONE; +CANA1TAB2 PO; +CELE200C PO; +CEPH-460 PO; +CETI-1 PO; +CLIN1CAP6 PO; -DILA100C PO; -ENOX40P SQ; -FLUO-1 PO; +GABA400C5 PO; +GLIP10TA6 PO; -LASI20TA PO; +LEXA20TA PO; +LIDOCAINE 1%/EPINEPHrine 1:100,000 SOLN 30 ML VIAL INFIL ONE; -LOMO PO; -LORA-475 PO; +LORA1TAB12 PO; -LORT7.5T3 PO; -METO5TAB PO; +MIDAZOLAM HCL 2 MG/2 ML VIAL ONE; +MONT10TA2 PO; -NEUR100C PO; -NEXI20CA PO; +NORC5TAB PO; +OMEP20TA PO; +PERI8.6T PO; -PHEN15TA8 PO; +PROM25TA10 PO; -PROM6.2518 PO; +PROPOFOL 200 MG/20 ML AMP IV ONE; +RESP: ALBUTEROL 2.5 MG/3 ML NEB (SCH) ONE; -SOMA350T PO; -TAB-TAB PO; +TAMS0.4C4 PO; +TRAM50TA PO; +TRAZ1TAB45 PO; -VARE.5; +ceFAZolin 2 GM PREMIX 50 ML ONE
--- NOTE | 2016-10-14 17:41 | TN ---
cc: HUMBLE PITT MD DATE OF SURGERY 10/14/2016 PREOPERATIVE DIAGNOSIS Sebaceous cyst, chronic cavity. POSTOPERATIVE DIAGNOSIS Sebaceous cyst, chronic cavity. PROCEDURE PERFORMED Excision of the left shoulder sebaceous cyst cavity. SURGEON Dr. Humble Pitt ECHOCARDIOGRAPHY TECHNOLOGIST See OR sheet ANESTHESIA GETA IV FLUIDS See anesthesia sheet ESTIMATED BLOOD LOSS 5 mL. DRAINS None. COMPLICATIONS None. WOUND CLASSIFICATION Clean, contaminated. SPECIMEN Were cystic cavity. INDICATION The patient is a 71-year-old male who presented initially with a large left shoulder cyst that underwent incision and drainage several weeks ago. The patient improved from this. However, still with persistent cystic cavity. Therefore decision was for excision of this cavity. PROCEDURE IN DETAIL The patient was taken to the operating room and placed in supine position. He was prepped and draped in usual sterile fashion after induction of general endotracheal anesthesia. Brief time-out done stating correct patient, procedure, surgical site and we were all in agreement with this. Attention first directed to the left shoulder where local anesthetic injected, a 15 blade used to incise the skin in an elliptical pattern to include the cystic cavity. Further dissection done with electro Bovie cautery. Hemostasis obtained with electro Bovie cautery. The cystic cavity defect was then irrigated and closed with 3-0 Vicryl followed by 3-0 nylon interrupted sutures. Sterile dressings placed. The patient tolerated the procedure well. There were no intraoperative complications. The patient was taken stable to PACU. Humble Pitt MD LSN/KK /5:14 PM /5:24 PM
== END | disposition home or self-care (01) ==
LOC: ESDC 11:48
PROVIDERS: ATTEND Surgery
DX: L72.3 Sebaceous cyst (principal)
CPT/HCPCS: 00400; 11402; 88304; J0690; J2250; J3010; J7613